=== PATIENT | female | born 1980 | race Caucasian/White ===

== ENCOUNTER → 2017-03-06 09:10 | Observation (INO) ==
--- NOTE | 2017-03-04 17:10 | OB/GYN History & Physical ---
Date of Encounter: 03/04/17 Time of Encounter: 16:58 Assessment and Plan (1) Dental abscess Current visit: No Status: Acute Discussed with Dr. Tao Admit for to OB service for evaluation and potential IV abx consulted hospitalist, Dr. Frey, for abx and pain management (2) 36 weeks gestation of Current visit: Yes Status: Acute NST q shift per Dr. Tao (3) Non-stress test reactive Current visit: Yes Status: Acute baseline 125 bpm moderate variability (4) Heroin abuse affecting in third trimester Current visit: Yes Status: Acute History of Present Illness Chief complaint: Dental Abscess HPI: Brook Andrew is a 36 year-old female who presents to labor and delivery from the office with jaw pain and facial swelling. For the past 3 days, she has noticed progressed right sided jaw pain and facial swelling. The pain is sharp and throbbing in quality and 10/10 in intensity. The swelling and pain have extended into the ear and neck, compared to just the mouth when it started. She denies fevers, chills, nausea, vomiting, diarrhea, shortness of breath, and chest pain. She was seen yesterday by urgent care who diagnosed dental abscess and prescribed keflex. She did not brick picker the prescription because the pharmacy was closed. Patient reports good movement. Patient denies vaginal bleeding, contractions, and leakage of fluid. The patient's has been complicated by heroin use, the latest being 2 weeks ago, as well as tobacco use (06/25/ ) and Hepatitis C. The was discovered at 30 weeks gestation. She was last seen in the office by Dr. Pollock earlier today, 03/04/17. Past Med Surg Social Fam HX - Past Medical History Medical history: hepatitis Psychiatric history: no psych history - Past Surgical History Surgical History: - Social History Smoking Status: Current every day smoker Packs per day: 0.5 Smokeless Tobacco Status: No Alcohol use: none Drug use: other - Family History Paternal Grandmother Living Status: Cause of : cancer Hx Family Cardiac Disorders: No Hx Family Respiratory Disorders: No Hx Family Cancer: Yes (breast) Hx Family GI Disorders: No Hx Family Genitourinary Disorders: No Hx Family Endocrine Disorder: No Hx Family Musculoskeletal Disorders: No Hx Family Neuromuscular Disorders: No Hx Family Neurologic Disorders: No Hx Family HEENT Disorders: No Hx Family Autoimmune Disorders: No Hx Family Reproductive Disorders: No Hx Family Psychosocial Disorders: No Hx Family Medical Disorders: No Obstetrical History - Pregnancies : 2 Para: 1 Term: 1 : 0 Ab's: 0 Livin - History/Complications History/Complications: Daughter was born in 2003 via C section Medications and Allergies Formula Tablet 03/04/17 [History] Subutex 8 mg PO BID 03/04/17 [History] 3 Allergy/AdvReac Type Severity Reaction Status Date / Time No Known Allergies Allergy Verified 04/15/16 19:18 Review of System OB - Constitutional Constitutional ROS IM: no chills, no fatigue, no fever(s), no headache(s) - Nose, mouth, and throat Nose, mouth and throat: dental pain, facial pain, mouth lesions - Gastrointestinal Gastrointestinal: no abdominal pain, no nausea, no vomiting - Genitourinary Genitourinary: no vaginal discharge - Neurological Nerological: no headache(s) Exam - Constitutional Constitutional: well developed, well nourished, no acute distress - HEENT HEENT: Normocephaly, Mucus Membranes Moist, Other (exquisitely tender swelling on the right buccal surface, poor dentition) - Lungs Respiratory exam: CTAB - Cardiovascular Cardiovascular exam: RRR, +S1, +S2 - Abdomen Abdomen: Present: gravid, non tender - Extremities Extremities exam: normal capillary refill, pedal edema (to the mid calf) Deep Tendon Reflex Grade: 2+ Normal (track lópez noted) - Uterus Uterus exam: Present: normal size, normal contour Results All other labs normal.
[2017-03-04 17:51] LABS: Basophils % 0.2 %; Eosinophils # 0.1 K/mcL (0.0-0.6); Eosinophils % 0.6 %; Hematocrit 36.4 % (35.3-44.9); Hemoglobin 11.9 g/dL (11.5-15.4); Immature Granulocytes % 0.4 % (0-4); Lymphocytes # 1.1 K/mcL (0.6-4.6); Lymphocytes % 10.5 %; Mean Corpuscular HGB Conc 32.7 g/dL (31.6-35.5); Mean Corpuscular Hemoglobin 29.9 pg (28.0-33.3); Mean Corpuscular Volume 91.5 fL (83.0-100.0); Mean Platelet Volume 10.3 fL (9.4-12.4); Monocytes # 0.9 K/mcL (0.0-1.3); Monocytes % 8.8 %; Neutrophils # 8.1 K/mcL (1.6-8.9); Platelet Count 282 K/mcL (140-400); Red Blood Count 3.98 M/mcL (3.82-4.97); Red Cell Distribution Width 13.2 % (11.5-14.5); Segmented Neutrophils % 79.5 %
--- NOTE | 2017-03-04 18:25 | Internal Medicine Consult Note ---
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 Andrew is a 36 year old female with 36 weeks gestation and history of IV drug use and chronic hepatitis C, presents with complaints of right-sided jaw swelling. Patient is currently on drug rehab program with [facility] and is on Subutex, however she continues to use Heroin intermittently, last use about 2 weeks ago. She reports right molar teeth being rotten and broken and she never had a dental appointment until now. She reports 3-day history of painful right jaw swelling, adjacent to her broken teeth, associated with subjective fever and chills. No nausea, vomiting, dysphagia, difficulty chewing food. Past Med Surg Social Fam HX - Past Medical History Medical history: hepatitis, liver disease (Hep C) Psychiatric history: no psych history - Past Surgical History Surgical History: , other (lithotripsy) - Social History Smoking Status: Current every day smoker Packs per day: 0.5 Smokeless Tobacco Status: No Alcohol use: none Drug use: IV Drug Use, other Occupational status: unemployed Current living situation: Home, With Family Activity Level: Independent ambulation - Family History Paternal Grandmother Living Status: Cause of : cancer Hx Family Cardiac Disorders: No Hx Family Respiratory Disorders: No Hx Family Cancer: Yes (breast) Hx Family GI Disorders: No Hx Family Genitourinary Disorders: No Hx Family Endocrine Disorder: No Hx Family Musculoskeletal Disorders: No Hx Family Neuromuscular Disorders: No Hx Family Neurologic Disorders: No Hx Family HEENT Disorders: No Hx Family Autoimmune Disorders: No Hx Family Reproductive Disorders: No Hx Family Psychosocial Disorders: No Hx Family Medical Disorders: No - Constitutional Constitutional: chills, fever(s) - EENT Nose, mouth and throat: dental pain, facial pain, mouth pain - Cardiovascular Cardiovascular ROS IM: no chest pain, no dyspnea, no dyspnea on exertion - Respiratory Respiratory: no cough, no dyspnea on exertion - Gastrointestinal Gastrointestinal: no abdominal pain, no nausea, no vomiting - Neurological Neurological ROS: no behavioral changes, no confusion, no headache(s), no numbness - Endocrine Endocrine IM: no cold intolerance, no excessive sweating, no fatigue - Hematologic/Lymphatic Hematologic/Lymphatic: no easy bruising, no lymphadenopathy Internal Medicine - CN: Meds Formula Tablet 03/04/17 [History] Subutex 8 mg PO BID 03/04/17 [History] 3 Allergy/AdvReac Type Severity Reaction Status Date / Time No Known Allergies Allergy Verified 04/15/16 19:18 Internal Medicine - CN: Exam - Constitutional Vitals: Temp Pulse Resp BP Pulse Ox 98.1 F 81 16 118/76 99 03/04/17 17:37 03/04/17 17:37 03/04/17 17:37 03/04/17 17:37 03/04/17 17:37 General appearance IM: Present: A&O X 3, answers questions appropriately - ENT Additional comments: Right molar- broken and black/cavities teeth with adjacent soft tissue swelling , noted to have slightly tender right mandibular pain; no erythema, purulent discharge noted in oral cavity - Respiratory Respiratory exam: Present: CTAB - Cardiovascular Cardiovascular exam IM: Present: RRR, +S1, +S2 - GI/Abdominal GI/Abdominal exam IM: Present: normal bowel sounds - Extremities Exam Extremities exam IM: Present: full ROM. Absent: pedal edema - Back Exam Back exam: Present: full ROM - Neurological Exam Neurological exam: Present: CN II-XII intact, oriented X3, no focal deficits - Skin Skin exam IM: Present: dry, warm Internal Medicine - CN: Reslt - Labs CBC & Chem 7: 03/04/17 16:30 Labs: Short CBC 03/04/17 Range/Units 16:30 WBC 10.2 (4.3-11.1) K/mcL Hgb 11.9 (11.5-15.4) g/dL Hct 36.4 (35.3-44.9) % Plt Count 282 (140-400) K/mcL Neutrophils # 8.1 (1.6-8.9) K/mcL Consult Discharge Plan - Plan Referrals: NONE,PCP [Primary Care Provider] -
[2017-03-04] MEDS: Piperacillin/Tazobactam 3.375 GM in D5% in Water (Mini-Bag+) 100 ML IVPB SCH (18:46)
[2017-03-04 20:59] LABS: BUN/Creatinine Ratio 15 (6-26); Blood Urea Nitrogen 11 mg/dL (7-20); Calcium 8.3 mg/dL (8.6-10.8); Carbon Dioxide 22 mEq/L (19-29); Chloride 104 mEq/L (98-109); Glucose 121 mg/dL (70-99); Osmolality,Calculated 285 (280-300); Potassium 3.7 mEq/L (3.5-4.5); Sodium 137 mEq/L (136-145); eGFR For African Americans > 60 (> 60); eGFR For Non-African Americans > 60 (> 60)
[2017-03-05] MEDS: *HR* Buprenorphine HCl 2 MG SUBLINGUAL TABLET SL SCH ×3 (00:06→21:00)
[2017-03-05 01:39] LABS: Amphetamine Screen,Urine Positive ng/mL (Cutoff=1000); Barbiturate Screen,Urine Negative ng/mL (Cutoff=200); Benzodiazepines Screen,Urine Negative ng/mL (Cutoff=200); Cannabinoid Screen,Urine Negative ng/mL (Cutoff = 50); Cocaine Screen,Urine Negative ng/mL (Cutoff= 300); Opiate Screen,Urine Positive ng/mL (Cutoff=300); Phencyclidine Screen,Urine Negative ng/mL (Cutoff=25)
[2017-03-05] MEDS: Piperacillin/Tazobactam 3.375 GM in D5% in Water (Mini-Bag+) 100 ML IVPB SCH ×2 (03:07→11:25)
--- NOTE | 2017-03-05 09:19 | OB/GYN Progress Note ---
Date of Encounter: 03/05/17 Time of Encounter: 09:12 - Assessment and Plan (1) Dental abscess Current Visit: Yes Status: Acute POC to be determined by IM physician team. Pt currently on Zosyn and reports improvement of sx. (2) 36 weeks gestation of Current Visit: Yes Status: Chronic Plan for NST this am. 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 Subjective - Subjective Principal diagnosis: tooth abscess Interval history: 36 year-old who presented yesterday at 36 weeks gestation with c/o tooth abscess. She had a fever in office prior to admission of 100.5. She had been seen over the weekend in urgent care but did not start the PO antibiotics. Upon admission she was started on IV Zosyn. Today she reports her pain has decreased. No additional fevers noted. Pt denies GARCIAS, chest pain, SOB, chills, LOF, VB, or any other complaints. Of note she is declining to take her subutex as ordered this am after the nurse reminded her that it could cause withdrawal sx if she has used in the last 24 hours. Pt told me that her last use was Saturday but then told the nurse it was before her appt yesterday. The staff are concerned that she had a visitor for a brief time last evening and shortly thereafter she became lethargic. She has had 2 urine drug screens in the office that were positive for heroin and other substances. Antepartum ROS: movement normal, no loss of fluid, no vaginal bleeding, no contractions Objective - Vital Signs Vital Signs: Vital Signs Temp Pulse Resp BP Pulse Ox 03/05/17 03:05 98 F 79 16 100/61 98 03/05/17 00:25 97.8 F 75 14 121/73 98 03/04/17 19:25 97.7 F 102 16 114/71 98 03/04/17 17:37 98.1 F 81 16 118/76 99 Intake and Output 03/04/17 03/05/17 03/05/17 23:59 07:59 15:59 Intake Total 100 / 100 Output Total 100 / 100 50 / 50 Balance 0 / 0 -50 / -50 Intake: IV Fluids 100 / 100 Zosyn 3.375 GM In 100 / 100 Dextrose 5% (Minibag+) 100 ML 100 ML @ 25 mls/hr IVPB Q8H [facility] Rx#: [id number] Output: Urine 100 / 100 50 / 50 Other: Weight 76.9 kg 76.232 kg Patient Weight 03/05/17 23:59 Weight 76.232 kg - Exam FHR comments: Plan for NST after breakfast this am. Auscultation: bilateral: normal Abdomen: Present: soft, gravid. Absent: tenderness Uterus: Absent: tenderness - Labs Labs: Abnormal lab results Glucose 121 mg/dL (70-99) H 03/04/17 20:31 Calcium 8.3 mg/dL (8.6-10.8) L 03/04/17 20:31 Urine Opiates Screen Positive ng/mL ([id number]) H 03/05/17 01:18 Ur Amphetamines Screen Positive ng/mL ([id number]) H 03/05/17 01:18 - Allied health notes Allied health notes reviewed: social work (SW notified of UDS + on admission as well as pt declining subutex this am.)
--- NOTE | 2017-03-05 09:30 | Internal Med Progress Note ---
<PrasannabretPablito hayes - Last Filed: 03/05/17 15:53> Date of Encounter: 03/05/17 Time of Encounter: 09:28 - Assessment and plan (1) Dental abscess Current Visit: Yes Status: Acute Assessment and plan: 36 year old female with poor dentition and right mandible swelling. She is broken and decaying teeth throughout her mouth. She has 2 broken and infected teeth at the site of jaw swelling. - Afebrile, denies diaphoresis, swallowing or breathing difficulties. 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 Drug screen to correlate. 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 Upon admission patient denied any opiate use within the last 2 weeks, urine drug screens demonstrate positive for urine opiates and amphetamines. Further discussion chemistries of the patient recently used heroin. - Of note the patient is on Subutex porch is likely not compliant as she is using heroin. Plan: - Monitor for withdrawal symptoms (3) 36 weeks gestation of Current Visit: Yes Status: Chronic Assessment and plan: Obstetrics initially admitted the patient as she is 36 weeks gestation, plan and monitoring her obstetrics and gynecology. - Subjective Interval history: Mrs. Andrew 36-year-old female seen and evaluated patient bedside this morning. She is awake alert and interactive in no acute distress. She says that the swelling in her right jaw has improved since yesterday but not completely resolved. She feels that antibiotics are effective and denies any side effects. She says that she has been dealing with dental issues for a while but has not seen a dentist and had no plans. She denies any fevers, chills, sweating, trouble swallowing or talking or breathing. She says that her current pain and discomfort is located in her right jaw. She did receive antibiotic prescription prior to her admission when she attended an urgent care for the same pain. She said she was given clindamycin but never filled it. - Constitutional Vitals: Temp Pulse Resp BP Pulse Ox 98 F 79 16 100/61 98 03/05/17 03:05 03/05/17 03:05 03/05/17 03:05 03/05/17 03:05 03/05/17 03:05 General appearance: Present: A&O X 3, answers questions appropriately Exam: General: Patient alert, awake, oriented 3, interactive, in no acute distress HEENT: Normocephalic, right mandible demonstrates edema, no erythema, leg tenderness to palpation, parotid glands without enlargement. Posterior oropharynx has moist mucous membranes, no erythema or edema, uvula is midline no tonsillar swelling., pupils equal reactive to light, nasal cavity patent and open septum median position, oral mucosa moist, uvula midline, neck supple trachea midline no palpable lymphadenopathy, no thyromegaly. Chest: Symmetric bilateral correlating with respiratory effort, effort nonlabored. Cardiac: Regular rate and rhythm, positive S1 and S2. no bruits appreciated bilateral carotids, Radial pulses 2+ bilateral, posterior tibial and dorsal pedal pulses 2+ bilateral. Respiratory: Clear to auscultation all lung mcneal Abdomen: abdomen correlating with gestation. positive bowel sounds. Extremities: Symmetric bilateral, bilateral lower extremities with 1+ edema, patient moving all 4 extremities spontaneously. Neurologic: No focal deficits appreciated on examination. Face symmetric, muscle strength symmetric bilateral upper and lower extremities. Internal Medicine: Result - Labs CBC & Chem 7: 03/04/17 16:30 03/04/17 20:31 Labs: Short CBC 03/04/17 Range/Units 16:30 WBC 10.2 (4.3-11.1) K/mcL Hgb 11.9 (11.5-15.4) g/dL Hct 36.4 (35.3-44.9) % Plt Count 282 (140-400) K/mcL Neutrophils # 8.1 (1.6-8.9) K/mcL BMP 03/04/17 20:31 Sodium 137 Potassium 3.7 Chloride 104 Carbon Dioxide 22 BUN 11 Creatinine 0.74 Glucose 121 H Calcium 8.3 L Consult Discharge Plan - Plan Referrals: NONE,PCP [Primary Care Provider] - <Juan Almeida H - Last Filed: 03/05/17 16:47> Date of Encounter: 03/05/17 - Constitutional Vitals: Temp Pulse Resp BP Pulse Ox 97.7 F 76 16 114/71 97 03/05/17 10:00 03/05/17 10:00 03/05/17 10:00 03/05/17 10:00 03/05/17 10:00 Internal Medicine: Result - Labs CBC & Chem 7: 03/04/17 16:30 03/04/17 20:31 Labs: Short CBC 03/04/17 Range/Units 16:30 WBC 10.2 (4.3-11.1) K/mcL Hgb 11.9 (11.5-15.4) g/dL Hct 36.4 (35.3-44.9) % Plt Count 282 (140-400) K/mcL Neutrophils # 8.1 (1.6-8.9) K/mcL BMP 03/04/17 20:31 Sodium 137 Potassium 3.7 Chloride 104 Carbon Dioxide 22 BUN 11 Creatinine 0.74 Glucose 121 H Calcium 8.3 L - Attending Attestation Continue Unasyn, may discharge on Augmentin if improving I examined this patient and my medical decision-making was reviewed with the Resident Physician. I agree with the documented findings, disposition and treatment plan as described except to the extent set forth below.
[2017-03-05] MEDS: Ampicillin/Sulbactam 1,500 MG in 0.9 % Sodium Chloride Mini Bag 100 ML IVPB SCH ×3 (11:44→23:48)
[2017-03-06 05:27] LABS: Basophils % 0.3 %; Eosinophils # 0.1 K/mcL (0.0-0.6); Eosinophils % 0.9 %; Hematocrit 34.1 % (35.3-44.9); Hemoglobin 11.1 g/dL (11.5-15.4); Immature Granulocytes % 0.3 % (0-4); Lymphocytes # 1.2 K/mcL (0.6-4.6); Lymphocytes % 12.8 %; Mean Corpuscular HGB Conc 32.6 g/dL (31.6-35.5); Mean Corpuscular Hemoglobin 29.6 pg (28.0-33.3); Mean Corpuscular Volume 90.9 fL (83.0-100.0); Mean Platelet Volume 9.6 fL (9.4-12.4); Monocytes # 1.2 K/mcL (0.0-1.3); Monocytes % 13.3 %; Neutrophils # 6.8 K/mcL (1.6-8.9); Platelet Count 242 K/mcL (140-400); Red Blood Count 3.75 M/mcL (3.82-4.97); Red Cell Distribution Width 13.3 % (11.5-14.5); Segmented Neutrophils % 72.4 %
[2017-03-06 05:48] LABS: Alanine Aminotransferase 15 Units/L (0-55); Albumin 2.1 g/dL (3.5-5.0); Albumin/Globulin Ratio 0.6 (1.1-2.2); Alkaline Phosphatase 159 Units/L (38-126); Aspartate Amino Transferase 13 Units/L (5-34); BUN/Creatinine Ratio 14 (6-26); Blood Urea Nitrogen 9 mg/dL (7-20); Calcium 8.2 mg/dL (8.6-10.8); Carbon Dioxide 21 mEq/L (19-29); Chloride 107 mEq/L (98-109); Globulin 3.7 g/dL (2.4-3.5); Glucose 96 mg/dL (70-99); Osmolality,Calculated 281 (280-300); Potassium 3.7 mEq/L (3.5-4.5); Sodium 136 mEq/L (136-145); Total Protein 5.8 g/dL (6.0-8.3); eGFR For African Americans > 60 (> 60); eGFR For Non-African Americans > 60 (> 60)
[2017-03-06 05:50] LABS: Bilirubin,Total < 0.2 mg/dL (0.2-1.2)
[2017-03-06] MEDS: Ampicillin/Sulbactam 1,500 MG in 0.9 % Sodium Chloride Mini Bag 100 ML IVPB SCH (06:56)
--- NOTE | 2017-03-06 08:09 | Discharge Summary ---
Date of Encounter: 03/06/17 Time of Encounter: 08:05 - Discharge Diagnosis (1) Dental abscess Priority: Primary Status: Acute Comments: Patient doing better after IV antibiotics. Pain is controlled. MRSA history - 1st swab negative, 2nd swab pending Discharge home with dentist appointment at 1245 this afternoon. POC per consult with Dr Varela. (2) 36 weeks gestation of Priority: Secondary Status: Chronic Comments: Follow up in office for routine care as scheduled. 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 Referred patient to [facility] for continued support if needed. - Discharge Medications Prescriptions: cephALEXin [Keflex] 500 mg PO TID #27 capsule metroNIDAZOLE [Flagyl] 500 mg PO BID #8 tablet Home Medications: Formula Tablet 03/04/17 [History] Acetaminophen [Tylenol] 500 mg PO Q6HR PRN tab 03/06/17 [Rx] cephALEXin [Keflex] 500 mg PO TID #27 capsule 03/06/17 [Rx] metroNIDAZOLE [Flagyl] 500 mg PO BID #8 tablet 03/06/17 [Rx] Allergies/Adverse Reactions: 3 Allergy/AdvReac Type Severity Reaction Status Date / Time No Known Allergies Allergy Verified 04/15/16 19:18 Data Procedures and tests throughout hospitalization: Laboratory Tests 03/04/17 03/04/17 03/04/17 16:30 20:31 20:31 WBC 10.2 RBC 3.98 Hgb 11.9 Hct 36.4 MCV 91.5 MCH 29.9 MCHC 32.7 RDW 13.2 Plt Count 282 MPV 10.3 Immature Gran % 0.4 Seg Neutrophils % 79.5 Lymphocytes % 10.5 Monocytes % 8.8 Eosinophils % 0.6 Basophils % 0.2 Neutrophils # 8.1 Lymphocytes # 1.1 Monocytes # 0.9 Eosinophils # 0.1 Basophils # 0.0 Sodium 137 Potassium 3.7 Chloride 104 Carbon Dioxide 22 BUN 11 Creatinine 0.74 Est GFR ( Amer) > 60 Est GFR (Non-Af Amer) > 60 BUN/Creatinine Ratio 15 Glucose 121 H Calculated Osmolality 285 Lactic Acid 1.4 Calcium 8.3 L Total Bilirubin AST ALT Alkaline Phosphatase Serum Total Protein Albumin Globulin Albumin/Globulin Ratio Nasal Screen MRSA (PCR) Urine Opiates Screen Ur Barbiturates Screen Ur Phencyclidine Scrn Ur Amphetamines Screen U Benzodiazepines Scrn Urine Cocaine Screen U Marijuana (THC) Screen 03/05/17 03/05/17 03/06/17 01:18 05:45 05:16 WBC 9.3 RBC 3.75 L Hgb 11.1 L Hct 34.1 L MCV 90.9 MCH 29.6 MCHC 32.6 RDW 13.3 Plt Count 242 MPV 9.6 Immature Gran % 0.3 Seg Neutrophils % 72.4 Lymphocytes % 12.8 Monocytes % 13.3 Eosinophils % 0.9 Basophils % 0.3 Neutrophils # 6.8 Lymphocytes # 1.2 Monocytes # 1.2 Eosinophils # 0.1 Basophils # 0.0 Sodium Potassium Chloride Carbon Dioxide BUN Creatinine Est GFR ( Amer) Est GFR (Non-Af Amer) BUN/Creatinine Ratio Glucose Calculated Osmolality Lactic Acid Calcium Total Bilirubin AST ALT Alkaline Phosphatase Serum Total Protein Albumin Globulin Albumin/Globulin Ratio Nasal Screen MRSA (PCR) Negative Urine Opiates Screen Positive H Ur Barbiturates Screen Negative Ur Phencyclidine Scrn Negative Ur Amphetamines Screen Positive H U Benzodiazepines Scrn Negative Urine Cocaine Screen Negative U Marijuana (THC) Screen Negative 03/06/17 05:16 WBC RBC Hgb Hct MCV MCH MCHC RDW Plt Count MPV Immature Gran % Seg Neutrophils % Lymphocytes % Monocytes % Eosinophils % Basophils % Neutrophils # Lymphocytes # Monocytes # Eosinophils # Basophils # Sodium 136 Potassium 3.7 Chloride 107 Carbon Dioxide 21 BUN 9 Creatinine 0.63 Est GFR ( Amer) > 60 Est GFR (Non-Af Amer) > 60 BUN/Creatinine Ratio 14 Glucose 96 Calculated Osmolality 281 Lactic Acid Calcium 8.2 L Total Bilirubin < 0.2 L AST 13 ALT 15 Alkaline Phosphatase 159 H Serum Total Protein 5.8 L Albumin 2.1 L Globulin 3.7 H Albumin/Globulin Ratio 0.6 L Nasal Screen MRSA (PCR) Urine Opiates Screen Ur Barbiturates Screen Ur Phencyclidine Scrn Ur Amphetamines Screen U Benzodiazepines Scrn Urine Cocaine Screen U Marijuana (THC) Screen Labs on day of discharge: Labs from last 24 hours 03/06/17 03/06/17 05:16 05:16 WBC 9.3 RBC 3.75 L Hgb 11.1 L Hct 34.1 L MCV 90.9 MCH 29.6 MCHC 32.6 RDW 13.3 Plt Count 242 MPV 9.6 Immature Gran % 0.3 Seg Neutrophils % 72.4 Lymphocytes % 12.8 Monocytes % 13.3 Eosinophils % 0.9 Basophils % 0.3 Neutrophils # 6.8 Lymphocytes # 1.2 Monocytes # 1.2 Eosinophils # 0.1 Basophils # 0.0 Sodium 136 Potassium 3.7 Chloride 107 Carbon Dioxide 21 BUN 9 Creatinine 0.63 Est GFR ( Amer) > 60 Est GFR (Non-Af Amer) > 60 BUN/Creatinine Ratio 14 Glucose 96 Calculated Osmolality 281 Calcium 8.2 L Total Bilirubin < 0.2 L AST 13 ALT 15 Alkaline Phosphatase 159 H Serum Total Protein 5.8 L Albumin 2.1 L Globulin 3.7 H Albumin/Globulin Ratio 0.6 L Date of admission: 03/04/17 15:35 Primary care physician: PCP NONE Consults: 03/04/17 16:10 Consult to Hospitalist [CONS] Routine Consulting Provider: Hospitalist Jes Reason for Consult: abscessed tooth Time Notified: 16:11 Call Completed: Yes Discharging clinician: Monie Thurston Anticipated date of discharge: 03/06/17 - Patient Status Disposition: Home, Self-Care Condition: Good Functional capacity at discharge: independent ambulation - Discharge Instructions Follow Up With: NONE,PCP [Primary Care Provider] - Aracelis Pollock MD [Partnered Physician] - - Diet and Activity Activity: resume usual activities as tolerated Diet: regular diet Hospital Course [employer] Time Attestation: Total time spent providing and/or coordinating discharge services: Time Spent: Less than 30 minutes Exam - Constitutional Vitals: Temp Pulse Resp BP Pulse Ox 98.8 F 70 14 110/76 98 03/05/17 20:25 03/05/17 20:25 03/05/17 20:25 03/05/17 20:25 03/05/17 20:25 General appearance IM: cooperative, A&O X 3, pleasant, answers questions appropriately - Respiratory Respiratory exam: Present: CTAB - Cardiovascular Cardiovascular exam IM: Present: RRR, +S1, +S2 - GI/Abdominal GI/Abdominal exam IM: normal bowel sounds, soft - Rectal Rectal exam: deferred - Additional comments: Uterus soft and appropriate for gestational age. Patient states positive movement. - Extremities Exam Extremities exam IM: Present: normal capillary refill, normal inspection - Neurological Exam Neurological exam: oriented X3 - VTE Reasons for not Prescribing Prophylaxis: Treatment not Indicated - Low risk for VTE
[~2017-03-06 09:10] MED LIST: Naloxone 0.4 MG/ML INJ IVP PRN
[2017-03-06 10:02] VITALS: BP 123/77
--- NOTE | 2017-03-06 11:01 | Internal Med Progress Note ---
<PrasannabretPablito hayes - Last Filed: 03/06/17 10:57> Date of Encounter: 03/06/17 Time of Encounter: 08:00 - Assessment and plan (1) Dental abscess Current Visit: Yes Status: Acute Assessment and plan: 36 year old female with poor dentition and right mandible swelling. She is broken and decaying teeth throughout her mouth. She has 2 broken and infected teeth at the site of jaw swelling. - Afebrile, denies diaphoresis, swallowing or breathing difficulties. 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 Drug screen to correlate. Plan - Discharging medications with Augmentin 875 mg by mouth - Patient is scheduled dental appointment today at 1245 - The risks and benefits of using Augmentin during were discussed with the patient who demonstrated understanding and agreement to antibiotic use. 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 Upon admission patient denied any opiate use within the last 2 weeks, urine drug screens demonstrate positive for urine opiates and amphetamines. Further discussion chemistries of the patient recently used heroin. - Of note the patient is on Subutex porch is likely not compliant as she is using heroin. Plan: - Monitor for withdrawal symptoms (3) 36 weeks gestation of Current Visit: Yes Status: Chronic Assessment and plan: Obstetrics initially admitted the patient as she is 36 weeks gestation, plan and monitoring her obstetrics and gynecology. - Subjective Interval history: Mrs. Andrew 36-year-old female seen and evaluated patient bedside this morning. She is awake alert and interactive in no acute distress. She says that the swelling in her right jaw is consistent with the day before but her pain is improved. Has been tolerable and she plans to follow-up with the dentist scheduled at 1245 today. She says her mother is here waiting for her to give her a ride and that attending her appointment should not be a problem. She plans to continue taking her antibiotics for treatment of her infected jaw. She denies any trouble swallowing, breathing, changes in her voice or any other new discomforts. She feels that the antibiotics have been helpful. She denies any fevers, chills, sweating, trouble swallowing or talking or breathing. She says that her current pain and discomfort is located in her right jaw. - Constitutional Vitals: Temp Pulse Resp BP Pulse Ox 98.7 F 77 16 123/77 98 03/06/17 07:30 03/06/17 07:30 03/06/17 07:30 03/06/17 07:30 03/06/17 07:30 General appearance: Present: A&O X 3, answers questions appropriately Exam: General: Patient alert, awake, oriented 3, interactive, in no acute distress HEENT: Normocephalic, right mandible demonstrates edema, no erythema, there is some tenderness to palpation, parotid glands without enlargement. Posterior oropharynx has moist mucous membranes, no erythema or edema, uvula is midline no tonsillar swelling., pupils equal reactive to light, nasal cavity patent and open septum median position, oral mucosa moist, uvula midline, neck supple trachea midline no palpable lymphadenopathy, no thyromegaly., She has multiple broken and decaying teeth with significant decay in her right mandibular molars. Chest: Symmetric bilateral correlating with respiratory effort, effort nonlabored. Cardiac: Regular rate and rhythm, positive S1 and S2. no bruits appreciated bilateral carotids, Radial pulses 2+ bilateral, posterior tibial and dorsal pedal pulses 2+ bilateral. Respiratory: Clear to auscultation all lung mcneal Abdomen: abdomen correlating with gestation. positive bowel sounds. Extremities: Symmetric bilateral, bilateral lower extremities with 1+ edema, patient moving all 4 extremities spontaneously. Neurologic: No focal deficits appreciated on examination. Face symmetric, muscle strength symmetric bilateral upper and lower extremities. Internal Medicine: Result - Labs CBC & Chem 7: 03/06/17 05:16 03/06/17 05:16 Labs: Short CBC 03/06/17 Range/Units 05:16 WBC 9.3 (4.3-11.1) K/mcL Hgb 11.1 L (11.5-15.4) g/dL Hct 34.1 L (35.3-44.9) % Plt Count 242 (140-400) K/mcL Neutrophils # 6.8 (1.6-8.9) K/mcL BMP 03/06/17 05:16 Sodium 136 Potassium 3.7 Chloride 107 Carbon Dioxide 21 BUN 9 Creatinine 0.63 Glucose 96 Calcium 8.2 L Liver Function 03/06/17 Range/Units 05:16 Total Bilirubin < 0.2 L (0.2-1.2) mg/dL AST 13 (5-34) Units/L ALT 15 (0-55) Units/L Alkaline Phosphatase 159 H (38-126) Units/L Albumin 2.1 L (3.5-5.0) g/dL - VTE Reasons for not Prescribing Prophylaxis: Treatment not Indicated - Low risk for VTE Consult Discharge Plan - Plan Referrals: Aracelis Pollock MD [Partnered Physician] - NONE,PCP [Primary Care Provider] - Prescriptions: cephALEXin [Keflex] 500 mg PO TID #27 capsule metroNIDAZOLE [Flagyl] 500 mg PO BID #8 tablet <Juan Almeida H - Last Filed: 03/06/17 14:17> Date of Encounter: 03/06/17 - Constitutional Vitals: Temp Pulse Resp BP Pulse Ox 98.7 F 77 16 123/77 98 03/06/17 07:30 03/06/17 07:30 03/06/17 07:30 03/06/17 07:30 03/06/17 07:30 Internal Medicine: Result - Labs CBC & Chem 7: 03/06/17 05:16 03/06/17 05:16 Labs: Short CBC 03/06/17 Range/Units 05:16 WBC 9.3 (4.3-11.1) K/mcL Hgb 11.1 L (11.5-15.4) g/dL Hct 34.1 L (35.3-44.9) % Plt Count 242 (140-400) K/mcL Neutrophils # 6.8 (1.6-8.9) K/mcL BMP 03/06/17 05:16 Sodium 136 Potassium 3.7 Chloride 107 Carbon Dioxide 21 BUN 9 Creatinine 0.63 Glucose 96 Calcium 8.2 L Liver Function 03/06/17 Range/Units 05:16 Total Bilirubin < 0.2 L (0.2-1.2) mg/dL AST 13 (5-34) Units/L ALT 15 (0-55) Units/L Alkaline Phosphatase 159 H (38-126) Units/L Albumin 2.1 L (3.5-5.0) g/dL - Attending Attestation Primary team was recommended to discharge the patient on Augmentin BID for 1 week. Follow up with dentist NUHA. I examined this patient and my medical decision-making was reviewed with the Resident Physician. I agree with the documented findings, disposition and treatment plan as described except to the extent set forth below.
== END | disposition home or self-care (01) ==
LOC: 1NENUOBS
PROVIDERS: ADMIT Obstetrics & Gynecology; ATTEND Obstetrics & Gynecology

== ENCOUNTER 2017-03-26 10:20 | Inpatient (IN) ==
[2017-03-26] MEDS ORDERED: Famotidine 20 MG/2 ML VIAL IVP ONE (10:31)
[2017-03-26] MEDS ORDERED: CeFAZolin Pre 2,000 MG/100 ML 2,000 MG/100 ML BAG IVPB ONE (10:31)
[2017-03-26] MEDS ORDERED: Metoclopramide 10 MG/2 ML VIAL IVP ONE (10:31)
[2017-03-26] MEDS ORDERED: Oxytocin 20 units/ LR 1000 mL 20 UNIT/1,000 ML BAG IVC ONE (10:31)
[2017-03-26] MEDS ORDERED: Oxytocin 20 units/ LR 1000 mL 20 UNIT/1,000 ML BAG IVC SCH ×2 (10:45→14:30)
[2017-03-26] MEDS ORDERED: *HR* Meperidine 25 MG/ML SYRINGE IVP PRN (11:23)
[2017-03-26] MEDS ORDERED: *HR* Promethazine 25 MG/ML VIAL IVP PRN (11:23)
[2017-03-26] MEDS ORDERED: *HR* HYDROmorphone (PF) 1 MG/ML SYRINGE IVP PRN ×2 (11:23→17:21)
[2017-03-26] MEDS ORDERED: Ondansetron 4 MG/2 ML VIAL IVP ONE (11:23)
--- NOTE | 2017-03-26 11:27 | Anesthesia Evaluation PreOp ---
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 discussed risks of flare up of herpes with spinal meds pt. wishes to proceeds) Anesthesia History: No Prior Anesthetic Complications, Past Anesthesia Alcohol Use: none Drug use: other Medications and Allergies Formula Tablet 1 / PO DAILY 03/04/17 [History] Acetaminophen [Tylenol] 500 mg PO Q6HR PRN tab 03/06/17 [Rx] 3 Allergy/AdvReac Type Severity Reaction Status Date / Time No Known Allergies Allergy Verified 04/15/16 19:18 Anesthesia Exam - HEENT Pupil (Motor): Pupils equal Mallampati: II Teeth: Normal (poor dentation) Oral Opening: Greater than 3 - CASKET ASSEMBLER LOC: Oriented CASKET ASSEMBLER Motor: Normal RUE, Normal LUE, Normal RLE, Normal LLE, Normal Face CASKET ASSEMBLER Sensory: Normal: RUE, LUE, RLE, LLE, Face - Cardiac Rhythm: Regular Murmur: None - Pulmonary Breath Sounds: bilateral Clear Respiratory Effort: Symmetrical Anesthesia Assess/Plan ASA Score: 2 Modified [place] Scale for Level of Consciousness: Cooperative, oriented, and tranquil Anesthetic Plan: General, Regional Monitoring Plan: Standard Monitors Recovery Plan: PACU
[2017-03-26] MEDS: Ringers Solution, Lactated 1,000 ML IVC SCH (11:30)
[2017-03-26] MEDS ORDERED: *HR* Oxytocin 10 UNIT/ML VIAL IM ONE (11:35)
[2017-03-26] MEDS ORDERED: *HR* Phenylephrine 10 MG/ML VIAL ONE (11:35)
[2017-03-26] MEDS ORDERED: *HR* FentaNYL (PF) 100 MCG/2 ML VIAL ONE (11:39)
[2017-03-26] MEDS ORDERED: *HR* Morphine Sulfate/PF 5 MG/10 ML AMPUL ONE (11:39)
[2017-03-26 11:50] LABS: Basophils # 0.1 K/mcL (0.0-0.2); Basophils % 0.7 %; Eosinophils # 0.1 K/mcL (0.0-0.6); Eosinophils % 1.2 %; Hematocrit 36.1 % (35.3-44.9); Immature Granulocytes % 0.3 % (0-4); Lymphocytes # 1.2 K/mcL (0.6-4.6); Lymphocytes % 16.4 %; Mean Corpuscular HGB Conc 33.2 g/dL (31.6-35.5); Mean Corpuscular Hemoglobin 29.9 pg (28.0-33.3); Mean Platelet Volume 10.3 fL (9.4-12.4); Monocytes # 0.8 K/mcL (0.0-1.3); Monocytes % 10.6 %; Neutrophils # 5.2 K/mcL (1.6-8.9); Platelet Count 299 K/mcL (140-400); Red Blood Count 4.01 M/mcL (3.82-4.97); Red Cell Distribution Width 12.9 % (11.5-14.5); Segmented Neutrophils % 70.8 %
--- NOTE | 2017-03-26 11:52 | OB/GYN History & Physical ---
Date of Encounter: 03/26/17 Time of Encounter: 11:40 Assessment and Plan (1) 39 weeks gestation of Current visit: Yes Status: Acute (2) deliv due to previous difficult deliv, deliv, curr hospitaliz Current visit: Yes Status: Acute History of Present Illness Chief complaint: Schedueled HPI: Ms. Andrew is a 36 year old female that is a that presents at 39 and 1 weeks gestation for a scheduled . Patient has prior history of C- section. She says that she feels movement. She denies any leakage of any vaginal fluid or bleeding. She denies contractions. She denies any changes in vision, headaches, chest pain, nausea, vomiting, fever, dysuria, or diarrhea. Blood type: A+ GBS: Negative Rubella: positive HbSAG: Non-reactive (01/07/17) T-pallidum: Negative. Varicella: Positive. Past Med Surg Social Fam HX - Past Medical History Medical history: hepatitis Psychiatric history: no psych history - Past Surgical History Surgical History: - Social History Smoking Status: Current every day smoker Packs per day: 1/2 Smokeless Tobacco Status: No Alcohol use: none Drug use: other - Family History Paternal Grandmother Living Status: Hx Family Cardiac Disorders: No Hx Family Respiratory Disorders: No Hx Family Cancer: Yes (breast) Hx Family GI Disorders: No Hx Family Genitourinary Disorders: No Hx Family Endocrine Disorder: No Hx Family Musculoskeletal Disorders: No Hx Family Neuromuscular Disorders: No Hx Family Neurologic Disorders: No Hx Family HEENT Disorders: No Hx Family Autoimmune Disorders: No Hx Family Reproductive Disorders: No Hx Family Psychosocial Disorders: No Hx Family Medical Disorders: No Obstetrical History - Pregnancies : 2 Para: 1 Term: 1 : 0 Ab's: 0 Livin Medications and Allergies Formula Tablet 1 / PO DAILY 03/04/17 [History] Acetaminophen [Tylenol] 500 mg PO Q6HR PRN tab 03/06/17 [Rx] 3 Allergy/AdvReac Type Severity Reaction Status Date / Time No Known Allergies Allergy Verified 04/15/16 19:18 Exam - Vital Signs Vital signs: Initial Vital Signs Temp Pulse Resp BP Pulse Ox 98.3 F 86 14 125/85 98 03/26/17 10:46 03/26/17 10:46 03/26/17 10:46 03/26/17 10:46 03/26/17 10:46 - Constitutional Constitutional: well developed, well nourished, no acute distress, average body habitus - HEENT HEENT: PERRL, Mucus Membranes Moist - Lungs Respiratory exam: CTAB - Cardiovascular Cardiovascular exam: RRR, +S1, +S2 - Abdomen Abdomen: Present: bowel sounds normal, gravid, non tender - Extremities Extremities exam: radial pulses palpable and symmetrical Deep Tendon Reflex Grade: 2+ Normal - Comments Comments: Cranial nerves II-XII intact. No focal deficits. Results Result Diagrams: 03/26/17 10:46 All other labs normal. - VTE Reasons for not Prescribing Prophylaxis: Treatment not Indicated - Low risk for VTE
[2017-03-26 12:09] LABS: Amphetamine Screen,Urine Positive ng/mL (Cutoff=1000); Barbiturate Screen,Urine Negative ng/mL (Cutoff=200); Benzodiazepines Screen,Urine Negative ng/mL (Cutoff=200); Cannabinoid Screen,Urine Negative ng/mL (Cutoff = 50); Cocaine Screen,Urine Negative ng/mL (Cutoff= 300); Opiate Screen,Urine Positive ng/mL (Cutoff=300); Phencyclidine Screen,Urine Negative ng/mL (Cutoff=25)
[2017-03-26] MEDS ORDERED: EPHEDrine 50 MG/ML VIAL ONE (12:15)
[2017-03-26] MEDS ORDERED: Ringers Solution, Lactated 1,000 ML ONE (12:21)
[2017-03-26] MEDS ORDERED: Ondansetron 4 MG/2 ML VIAL ONE (13:14)
[2017-03-26] MEDS ORDERED: *HR* FentaNYL (PF) 250 MCG/5 ML VIAL ONE (13:50)
[2017-03-26] MEDS ORDERED: *HR* Promethazine 25 MG/ML VIAL ONE (14:04)
--- NOTE | 2017-03-26 14:21 | OB/GYN Procedure Note ---
Section - Date of procedure: 03/26/17 Preop diagnosis: desires repeat , desires sterilization Post-op diagnosis: same Procedure: repeat low transverse Surgeon: Aracelis Pollock Estimated blood loss (cc): 350 Cyber Systems Operations Specialist: Byron Sykes Anesthesia Type: Epidural section complications: none Disposition: L&D Recovery Room Specimens: Placenta, Right tube segment, Left tube segment - Infant (s) A Delivery Date: 03/26/17 Presentation: vertex Gender: Male - Narrative Narrative: Patient was brought to the operating room with satisfactory spinal anesthesia. The abdomen was prepped and draped in a sterile fashion. A Pfannenstiel incision was made and carried sharply down to the level of fascia. The fascia was incised transversely. The fascia was dissected away from the underlying rectus muscles. With sharp and blunt dissection, rectus muscles were divided in midline. The perineum was entered bluntly. The incision was carried vertically with scissors. Transverse incision was made across the bladder peritoneum. The bladder was dissected away from the underlying lower uterine segment. Bladder retractor was placed to protect the bladder. The lower uterine segment was entered sharply with a scalpel. Incision was manually extended. Clear stained amniotic fluid was encountered. The 's head was pulled up and delivered easily as were the shoulders and body. The mouth and oropharynx were suctioned. The cord was clamped and cut. The was passed off to the waiting sonar watchstander in satisfactory condition. APGARS 8/9, weight 5lbs 6oz. Placenta was extracted completely and found to be intact. Uterus was explored and found to be empty. Uterus was delivered through the abdominal incision and massaged vigorously. Intravenous Pitocin was administered. Clamps were placed about the margins of the uterine incision, which was closed primarily with a running locking stitch of 0 Vicryl with adequate hemostasis. Secondary running locking stitch was placed for extra strength to the wound. At this point, attention was diverted to the patient's tubes, a [place] clamp grasped the isthmic portion of each tube and approximately 1-cm knuckle on either side was tied off with two lengths of 0 plain catgut. Intervening knuckle was excised and passed off the field. The proximal end of the tubal mucosa was cauterized. Cul-de-sac and gutters were suctioned vigorously. The uterus was returned to its proper anatomic position in the abdomen. The fascia was closed with a simple running stitch of 0 vicryl. The skin was closed with running subcuticular of 4-0 vicryl. Uterus was expressed of its contents. Patient was brought to the recovery room in satisfactory condition. There were no complications. There was 350 cc of blood loss. All sponge, needle, and instrument counts were reported to be correct.
[2017-03-26] MEDS ORDERED: Metoclopramide 10 MG/2 ML VIAL IVP PRN (14:22)
[2017-03-26] MEDS ORDERED: Simethicone 80 MG TAB.CHEW PO PRN (14:22)
[2017-03-26] MEDS ORDERED: Sennosides 8.6 MG TABLET PO PRN (14:22)
[2017-03-26] MEDS ORDERED: Ondansetron 4 MG/2 ML VIAL IVP PRN (14:22)
[2017-03-26] MEDS ORDERED: *HR* HYDROmorphone (PF) 1 MG/ML SYRINGE ONE ×2 (14:24→16:15)
[2017-03-26] MEDS ORDERED: Ketorolac 30 MG/ML VIAL ONE (14:26)
--- NOTE | 2017-03-26 17:19 | Anesthesia Evaluation Post Op ---
Date of Encounter: 03/26/17 Time of Encounter: 16:24 - Vital Signs Vital Signs: vss - Lungs Lungs: Clear Ascult./Percussion - Airway Airway: Non-obstructed - Cardiovascular Baseline Rhythm - Mental Status Mental Status: Asleep with brisk response to light stimulation - Pain Pain Scale used: Jadyn (Faces) (patient C/O moderate pain, just medicated with 2mg dilaudid IV, patient aware pain control challenge d/t current hx of IV drug abuse.) - Nausea Vomiting Nausea Vomiting: Not Present - Hydration Hydration: Ice chips - Discharge PostOp Status: Transfer Patient to floor
[2017-03-26] MEDS ORDERED: *HR* Morphine 2 MG/ML SYRINGE IVP PRN (17:21)
[2017-03-26] MEDS ORDERED: *HR* HYDROmorphone 20 MG/20 ML PCA IVC PRN (17:26)
--- NOTE | 2017-03-26 20:51 | Anesthesia Progress Note ---
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
[2017-03-26] MEDS ORDERED: Promethazine 12.5 MG in 0.9 % Sodium Chloride 50 ML IVPB PRN (20:52)
[2017-03-26] MEDS: Ketorolac 30 MG/ML VIAL IVP PRN (21:48)
[2017-03-26] MEDS: *HR* OxyCODONE/APAP 5/325 TABLET PO PRN (21:50)
[2017-03-27 04:36] LABS: Basophils # 0.1 K/mcL (0.0-0.2); Basophils % 0.5 %; Eosinophils # 0.2 K/mcL (0.0-0.6); Eosinophils % 1.5 %; Hematocrit 33.2 % (35.3-44.9); Hemoglobin 11.3 g/dL (11.5-15.4); Immature Granulocytes % 0.3 % (0-4); Lymphocytes # 1.6 K/mcL (0.6-4.6); Lymphocytes % 16.1 %; Mean Corpuscular Hemoglobin 31.1 pg (28.0-33.3); Mean Corpuscular Volume 91.5 fL (83.0-100.0); Mean Platelet Volume 9.9 fL (9.4-12.4); Monocytes # 0.8 K/mcL (0.0-1.3); Monocytes % 8.2 %; Neutrophils # 7.2 K/mcL (1.6-8.9); Platelet Count 247 K/mcL (140-400); Red Blood Count 3.63 M/mcL (3.82-4.97); Red Cell Distribution Width 13.1 % (11.5-14.5); Segmented Neutrophils % 73.4 %
[2017-03-27] MEDS: Ketorolac 30 MG/ML VIAL IVP PRN (04:52)
[2017-03-27] MEDS: *HR* OxyCODONE/APAP 5/325 TABLET PO PRN ×3 (04:53→17:38)
[2017-03-27] MEDS: Ringers Solution, Lactated 1,000 ML IVC SCH (04:53)
--- NOTE | 2017-03-27 08:44 | OB/GYN Progress Note ---
Date of Encounter: 03/27/17 Time of Encounter: 08:42 - Assessment and Plan (1) delivery delivered Current Visit: Yes Status: Acute Discontinue DEAN at noon, Continue oral pain management and toradol IV Encourage ambulation Anticipate DC tomorrow. Subjective - Subjective Interval history: Pt sleeping when provider entered room and continued to fall back asleep if she was not talking, had to wake patient up to answer questions. Pt states pain is still a 5/10. [place] just removed. Patient reports: pain well controlled : in NICU Objective - Vital Signs Latest vital signs: Vital Signs Temp Pulse Resp BP Pulse Ox 03/27/17 07:20 98.7 F 75 12 114/75 97 03/27/17 04:30 98.7 F 65 14 115/76 99 03/26/17 23:20 98.7 F 75 14 105/64 97 03/26/17 21:25 98.7 F 70 12 116/77 97 03/26/17 19:45 98.5 F 66 14 131/81 97 03/26/17 17:45 98 F 73 20 121/75 96 03/26/17 16:45 98.2 F 64 16 120/81 95 03/26/17 10:46 98.3 F 86 14 125/85 98 Intake and Output 03/26/17 03/27/17 03/27/17 23:59 07:59 15:59 Intake Total 50.5 / 50.5 120 / 120 Output Total 125 / 125 650 / 650 Balance -74.5 / -74.5 -530 / -530 Intake: IV Fluids 50.5 / 50.5 Lactated Ringers 1,000 ML @ 125 0 / 0 mls/hr IVC .Q8H EMELY Rx#: [id number] Phenergan 12.5 MG In 0.9 % 50.5 / 50.5 Sodium Chloride 50 ML @ 204 mls /hr IVPB Q6HR PRN Rx#: [id number] Oral 120 / 120 Output: Catheter 125 / 125 650 / 650 Other: Weight 84.6 kg 77.3 kg Patient Weight 03/27/17 23:59 Weight 77.3 kg - Exam Lungs: bilateral: normal Chest: Normal S1, Normal S2 Extremities: Present: normal Abdomen: Present: normal appearance, soft Incision: Present: dressed (Clean,dry and intact ) Uterus: Present: firm Comments: Fundus at U - Labs Labs: Laboratory Results - last 24 hr 03/26/17 03/26/17 03/27/17 10:46 11:10 04:17 WBC 7.3 9.8 RBC 4.01 3.63 L Hgb 12.0 11.3 L Hct 36.1 33.2 L MCV 90.0 91.5 MCH 29.9 31.1 MCHC 33.2 34.0 RDW 12.9 13.1 Plt Count 299 247 MPV 10.3 9.9 Immature Gran % 0.3 0.3 Seg Neutrophils % 70.8 73.4 Lymphocytes % 16.4 16.1 Monocytes % 10.6 8.2 Eosinophils % 1.2 1.5 Basophils % 0.7 0.5 Neutrophils # 5.2 7.2 Lymphocytes # 1.2 1.6 Monocytes # 0.8 0.8 Eosinophils # 0.1 0.2 Basophils # 0.1 0.1 Urine Opiates Screen Positive H Ur Barbiturates Screen Negative Ur Phencyclidine Scrn Negative Ur Amphetamines Screen Positive H U Benzodiazepines Scrn Negative Urine Cocaine Screen Negative U Marijuana (THC) Screen Negative
[2017-03-27] MEDS: Prenatal Vit/FA 1 EACH TABLET PO SCH (09:33)
[2017-03-27] MEDS: Ibuprofen 600 MG TABLET PO PRN ×2 (18:36→22:47)
[2017-03-28] MEDS: Prenatal Vit/FA 1 EACH TABLET PO SCH (08:56)
[2017-03-28] MEDS: *HR* OxyCODONE/APAP 5/325 TABLET PO PRN (08:56)
[2017-03-28 09:22] VITALS: BP 124/84
--- NOTE | 2017-03-28 09:25 | Discharge Summary ---
Date of Encounter: 03/28/17 Time of Encounter: 09:19 - Discharge Diagnosis (1) delivery delivered Priority: Primary Status: Acute Comments: Pt meeting all post-op milestones. Her pain is moderately controlled this am. She is tolerating a regular diet without nausea, voiding spontaneously, passing flatus, ambulating without difficulty. She is bottle feeding. 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 Pt denies readiness for inpatient rehab at the time of discharge. She is requesting discharge today. She denies any trafficking or manipulation to use from an outside source. We discussed the difficulty of pain control in post-op patients who are actively using illegal substances and the concerns about prescribing opiate pain medications related to causing more harm than good. Pt is understanding that she will be discharged home with NSAIDs only. This has been discussed with Dr. Ramirez as well and he is in agreement. Will rx toradol for post-op pain and pt is aware not to take any other NSAIDs like Motrin. - Discharge Medications Prescriptions: Docusate [Colace] 100 mg PO BID #60 capsule Home Medications: Formula Tablet 1 / PO DAILY 03/04/17 [History] Acetaminophen [Tylenol] 500 mg PO Q6HR PRN tab 03/06/17 [Rx] Docusate [Colace] 100 mg PO BID #60 capsule 03/28/17 [Rx] Ketorolac [Toradol] 10 mg PO Q6HR PRN #16 tablet 03/28/17 [Rx] Simethicone [Gas-X] 80 mg PO TID PRN tab.chew 03/28/17 [Rx] Allergies/Adverse Reactions: 3 Allergy/AdvReac Type Severity Reaction Status Date / Time No Known Allergies Allergy Verified 04/15/16 19:18 Data Procedures and tests throughout hospitalization: Laboratory Tests 03/26/17 03/26/17 03/27/17 10:46 11:10 04:17 WBC 7.3 9.8 RBC 4.01 3.63 L Hgb 12.0 11.3 L Hct 36.1 33.2 L MCV 90.0 91.5 MCH 29.9 31.1 MCHC 33.2 34.0 RDW 12.9 13.1 Plt Count 299 247 MPV 10.3 9.9 Immature Gran % 0.3 0.3 Seg Neutrophils % 70.8 73.4 Lymphocytes % 16.4 16.1 Monocytes % 10.6 8.2 Eosinophils % 1.2 1.5 Basophils % 0.7 0.5 Neutrophils # 5.2 7.2 Lymphocytes # 1.2 1.6 Monocytes # 0.8 0.8 Eosinophils # 0.1 0.2 Basophils # 0.1 0.1 Urine Opiates Screen Positive H Ur Barbiturates Screen Negative Ur Phencyclidine Scrn Negative Ur Amphetamines Screen Positive H U Benzodiazepines Scrn Negative Urine Cocaine Screen Negative U Marijuana (THC) Screen Negative Date of admission: 03/26/17 10:20 Primary care physician: PCP POONAM Consults: 03/26/17 10:34 Consult to Parts Counterperson (W&C) [CONS] Routine Reason For Exam: Drug abuse history Reason for SW Consult: History of drug abuse and late PNC Discharging clinician: Mariola Rosario Anticipated date of discharge: 03/28/17 - Patient Status Disposition: Home, Self-Care Condition: Good Functional capacity at discharge: independent ambulation Overall status at discharge: patient is progressing back to baseline - Discharge Instructions Follow Up With: NONE,PCP [Primary Care Provider] - Aracelis Pollock MD [Partnered Physician] - - Diet and Activity Activity: increase activity as tolerated Diet: regular diet Hospital Course Reason for admission: section Delivery: section Episiotomy: none Laceration: none Other procedures: tubal ligation complications: none Discharge diagnosis: IUP at term delivered [place] baby: male Hospital course: - Date of procedure: 03/26/17 Preop diagnosis: desires repeat , desires sterilization Post-op diagnosis: same Procedure: repeat low transverse Surgeon: Aracelis Pollock Estimated blood loss (cc): 350 Decal Applier: Byron Sykes Anesthesia Type: Epidural section complications: none Disposition: L&D Recovery Room Specimens: Placenta, Right tube segment, Left tube segment - (s) A Infant Delivery Date: 03/26/17 Presentation: vertex Gender: Male Uncomplicated course. Baby will remain in nursery for ROBERT Time spent discussing smoking cessation with patient: more than 10 minutes (we discussed need for inpatient rehab and concerns regarding active drug use) Time Attestation: Total time spent providing and/or coordinating discharge services: Time Spent: Less than 30 minutes - VTE Reasons for not Prescribing Prophylaxis: Treatment not Indicated - Low risk for VTE Documentation of Mechanical Device: Intermittent pneumatic compression device Exam - Constitutional Vitals: Temp Pulse Resp BP Pulse Ox 98.6 F 86 14 134/82 96 03/27/17 19:51 03/27/17 19:51 03/27/17 19:51 03/27/17 19:51 03/27/17 19:51 General appearance IM: A&O X 3 - Respiratory Respiratory exam: Present: CTAB - Cardiovascular Cardiovascular exam IM: Present: RRR, +S1, +S2 - GI/Abdominal GI/Abdominal exam IM: soft, no peritoneal signs Incision: intact (scant drainage at midline, bruising noted inferior to incision ) - Rectal Rectal exam: deferred - External exam: normal external exam Uterine Tone: Firm Uterus Position: 1 Finger Below Umbilicus - Extremities Exam Extremities exam IM: Present: pedal edema (2+ edema to knees bilaterally, no erythema or warmth). Absent: calf tenderness, tenderness, warm - Neurological Exam Neurological exam: normal gait, oriented X3 - Psychiatric Additional comments: reports good mood
[2017-03-28] MEDS ORDERED: FLUARIX QUAD 2017-18 36MOS UP/PF 0.5 ML SYRINGE IM ONE (12:59)
== END 2017-03-28 14:00 | disposition home or self-care (01) | DRG 540 ==
LOC: 1NENULAB 10:20 → 1NENUOBS 16:53
PROVIDERS: ADMIT Student in an Organized Health Care Education/Training Program; ATTEND Student in an Organized Health Care Education/Training Program